=== PATIENT | male | born 1965 | race Hispanic/Latino ===

== ENCOUNTER → 2018-11-09 | Day surgery (SDC) | payer OTHER ==
[~2018-11-09] MED LIST: ABILIFY2 MG PO; ACETAMINOPHEN 1000 MG/100 ML 100 ML IV ONE; ACTOS45 MG PO; ALBUTEROL SULFATE HFA 8GM INHALATION AEROSOL INH ONE; BACITRACIN 50,000 UNIT VIAL ONE; BROMFED DM COU118 ML PO; BUPIVACAINE HCL 0.5% INJ 30 ML VIAL INJ ONE; BUSPIRONE HCL15 MG PO; CEFAZOLIN SOD 1 GM/NS 50ML 100 ML IV ONE; DEXAMETHASONE SOD PHOS INJ 4 MG/ML VIAL ONE; DEXTROSE 5% 250ML 250 ML IV ONE; DIGOXIN125 MCG PO; EPHEDRINE SULFATE INJ 50 MG/10 ML SYR ONE; FENTANYL CITRATE/PF 100MCG/2 ML INJ ONE; GLIMEPIRIDE2 MG PO; GLYCOPYRROLATE INJ 1MG/ 5 ML SYR ONE; LEXAPRO10 MG PO; LIDOCAINE HCL 2% LOCAL INJ 5 ML SDV VIAL INJ ONE; LOSARTAN POTASS50 MG PO; METFORMIN HCL500 MG PO; METOPROLOL TART50 MG PO; MIDAZOLAM HCL 2 MG/2 ML VIAL ONE; ONDANSETRON HCL INJ 2MG/ML 2ML 2 MG/ML VIAL ONE; PROPOFOL IV EMULSION 10 MG/ML 20 ML VIAL ONE; ROPIVACAINE 0.5% 5 MG/ML 30 ML SDV ONE; SEVOFLURANE INHAL SOLN 250 ML PEN BTL ONE; SIMVASTATIN40 MG PO; TRAZODONE HCL100 MG PO; XARELTO10 MG PO
--- OUTSIDE RECORDS SUMMARY | 2018-11-09 09:26 | XMS REPORT | Summary of Care ---
Author Author [facility] Organization [facility] Address Unknown Phone Unavailable Encounter MARY Acosta(MAL) [id number] Date(s): 03/31/17 - 03/31/[address] [address]- Encounter Diagnosis Chronic obstructive pulmonary disease with acute lower respiratory infection (Final) - 04/07/17 Hypertensive chronic kidney disease with stage 5 chronic kidney disease or end s tage renal disease (Final) - Unspecified atrial fibrillation (Final) - Unspecified atrial flutter (Final) - Insomnia due to medical condition (Final) - Bipolar disorder, current episode depressed, severe, with psychotic features (Final) - Hyperlipidemia, unspecified (Final) - Schizoaffective disorder, unspecified (Final) - Unspecified lack of coordination (Final) - Major depressive disorder, recurrent, unspecified (Final) - Type 2 diabetes mellitus without complications (Final) - Tachycardia, unspecified (Final) - Auditory hallucinations (Final) - Discharge Disposition: Home or Self Care Attending Physician: Jamaal Aguilar MD Referring Physician: Jesus Jacobs MD Vital Signs Most recent to 1 oldest [Reference Range]: Height 167.64 cm (03/31/17 11:22 AM) Weight 83.636 kg (03/31/17 11:22 AM) Body Mass Index 29.76 m2 (03/31/17 11:22 AM) Problem List Condition Effective Dates Status Health Status Informant Auditory Resolved hallucinations(Confi rmed) Depression(Confirmed Active ) Diabetes(Confirmed) Active Schizoaffective Active disorder(Confirmed) Visual Resolved hallucinations(Confi rmed) Allergies, Adverse Reactions, Alerts Substance Reaction Severity Status NKDA Active Medications No data available for this section Results No data available for this section Immunizations No data available for this section Procedures No data available for this section Social History Social History Type Response Substance Abuse Use: None.1 Alcohol Past2 Smoking Status Current every day smoker; Exposure to Tobacco Smoke None; Cigarette Smoking Last 365 Days Yes; Reg Smoking Cessation Counseling No3 entered on: 07/10/15 1denies 2last drank in his 30's 36-8 cigs/day Assessment and Plan No data available for this section
--- OUTSIDE RECORDS SUMMARY | 2018-11-09 09:26 | XMS REPORT | Continuity of Care Document ---
Author Author [facility] Address Unknown Phone Unavailable Care Team Providers Care Supervisor Lace Tearing Name Role Phone [employer] Unavailable Unavailable Problems Problem Status Onset Date Classification Date Reported Comments Source Chronic obstructive pulmonary disease with acute lower respiratory infection 04/08/2017 07/07/[address] [facility] CHRONIC BRONCHITIS Active 03/25/[address] [facility] Discharge Diagnosis: Paroxysmal atrial fibrillation 07/10/2015 07/13/2015 [facility] NEW ONSET A-FIB Active 07/10/2015 [facility] Hypertensive chronic kidney disease with stage 5 chronic kidney disease or end stage renal disease 07/07/[address] [facility] Unspecified atrial fibrillation 07/07/2017 [facility] Unspecified atrial flutter 07/07/[address] [facility] Insomnia due to medical condition 07/07/[address] [facility] Bipolar disorder, current episode depressed, severe, with psychotic features 07/07/2017 [facility] Hyperlipidemia, unspecified 07/07/2017 [facility] Schizoaffective disorder, unspecified 07/07/[address] [facility] Unspecified lack of coordination 07/07/[address] [facility] Major depressive disorder, recurrent, unspecified 07/07/[address] [facility] Type 2 diabetes mellitus without complications 07/07/2017 [facility] Tachycardia, unspecified 07/07/[address] [facility] Auditory hallucinations 07/07/[address] [facility] Auditory hallucinations (finding) Resolved Problem 07/07/2017 [facility] [place] Depressive disorder (disorder) Active Problem 07/07/2017 [facility] [place] Diabetes mellitus (disorder) Active Problem 07/07/2017 [facility] Schizoaffective disorder (disorder) Active Problem 07/07/2017 [facility] Visual hallucinations (finding) Resolved Problem 07/07/2017 [facility] Medications Medication Details Route Status Patient Instructions Ordering Provider Order Date Source Saline Flush 0.9% 10 mL, Route: IVP, Drug Form: INJ, Dosing Weight 72.727, kg, PRN, PRN Line Flush, Start date: 07/10/15 12:39:00 CDT, Duration: 1 day, Stop date: 07/11/15 12:38:00 CDTNotes: (Same as: BD Posiflush) Inactive 07/10/2015 [facility] Allergies, Adverse Reactions, Alerts No Known Medication Allergies Immunizations No Data Provided for This Section Results Order Name Results Value Reference Range Date Interpretation Comments Source CARDIAC ENZYMES BNP 34 <=100 pg/mL 07/10/2015 [facility] CARDIAC ENZYMES Troponin-I <0.02 0.00 - 0.40 07/10/2015 [facility] CHEM PANEL Magnesium Lvl 2.0 1.8 - 2.4 07/10/2015 [facility] CHEM PANEL AST 17 0 - 37 07/10/2015 [facility] CHEM PANEL Bili Total 0.4 0.2 - 1.3 07/10/2015 [facility] CHEM PANEL ALT 24 0 - 65 07/10/2015 [facility] PANEL Albumin Lvl 3.6 3.5 - 5.0 07/10/2015 [facility] PANEL eGFR 104 07/10/2015 Result Comment: The eGFR is calculated using the CKD-EPI formula. In most young, healthy individuals the eGFR will be >90 mL/min/1.73m2. The eGFR declines with age. An eGFR of 60-89 may be normal in some populations, particularly the elderly, for whom the CKD-EPI formula has not been extensively validated. Use of the eGFR is not recommended in the following populations:

Individuals with unstable creatinine concentrations, including patients and those with serious co-morbid conditions.

Patients with extremes in muscle mass or diet.

The data above are obtained from the National Kidney Disease Education Program (NKDEP) which additionally recommends that when the eGFR is used in patients with extremes of body mass index for purposes of drug dosing, the eGFR should be multiplied by the estimated BMI. [facility] CHEM PANEL Total Protein 6.3 6.4 - 8.4 07/10/2015 [facility] CHEM PANEL BUN 16 7 - 22 07/10/2015 [facility] CHEM PANEL Sodium Lvl 144 135 - 145 07/10/2015 [facility] CHEM PANEL Glucose Lvl 151 70 - 99 07/10/2015 [facility] CHEM PANEL Calcium Lvl 8.5 8.5 - 10.5 07/10/2015 [facility] CHEM PANEL Chloride Lvl 109 95 - 109 07/10/2015 [facility] CHEM PANEL Potassium Lvl 3.7 3.5 - 5.1 07/10/2015 [facility] CHEM PANEL CO2 28 24 - 32 07/10/2015 [facility] CHEM PANEL Creatinine Lvl 0.77 0.50 - 1.40 07/10/2015 [facility] CHEM PANEL Alk Phos 78 39 - 136 07/10/2015 [facility] CHEM PANEL B/C Ratio 21 6 - 25 07/10/2015 [facility] CHEM PANEL AGAP 10.7 10.0 - 20.0 07/10/2015 [facility] CHEM PANEL Globulin 2.7 2.0 - 4.0 07/10/2015 [facility] CHEM PANEL A/G Ratio 1.3 0.7 - 1.6 07/10/2015 [facility] HEMATOLOGY INR 1.05 0.85 - 1.17 07/10/2015 [facility] HEMATOLOGY PT 14.0 12.0 - 14.7 07/10/2015 [facility] HEMATOLOGY WBC 5.8 3.7 - 10.4 07/10/2015 [facility] HEMATOLOGY RBC 4.60 4.70 - 6.10 07/10/2015 [facility] HEMATOLOGY Hgb 13.9 14.0 - 18.0 07/10/2015 [facility] HEMATOLOGY RDW 13.1 11.5 - 14.5 07/10/2015 [facility] HEMATOLOGY MCH 30.3 27.0 - 31.0 07/10/2015 [facility] HEMATOLOGY MCHC 34.4 32.0 - 36.0 07/10/2015 [facility] HEMATOLOGY MCV 88.3 80.0 - 94.0 07/10/2015 [facility] HEMATOLOGY Hct 40.6 42.0 - 54.0 07/10/2015 [facility] HEMATOLOGY Platelet 180 133 - 450 07/10/2015 [facility] HEMATOLOGY MPV 8.5 7.4 - 10.4 07/10/2015 [facility] HEMATOLOGY Eosinophils 2.1 0.0 - 4.0 07/10/2015 [facility] HEMATOLOGY Lymphocytes 37.0 20.0 - 40.0 07/10/2015 [facility] HEMATOLOGY Segs 53.7 45.0 - 75.0 07/10/2015 [facility] HEMATOLOGY Basophils 0.5 0.0 - 1.0 07/10/2015 [facility] HEMATOLOGY Monocytes # 0.4 0.0 - 0.8 07/10/2015 [facility] HEMATOLOGY Eosinophils # 0.1 0.0 - 0.5 07/10/2015 [facility] HEMATOLOGY Monocytes 6.7 2.0 - 12.0 07/10/2015 [facility] HEMATOLOGY Segs-Bands # 3.1 1.5 - 8.1 07/10/2015 [facility] HEMATOLOGY Lymphocytes # 2.2 1.0 - 5.5 07/10/2015 [facility] IMMUNOLOGY CDC HIV 4th GEN Negative (07/10/15 1:14 PM) Negative 07/10/2015 [facility] IMMUNOLOGY [place]-Hep C Ab Negative *NA* (07/10/15 1:14 PM) Negative 07/10/2015 [facility] Pathology Reports No Data Provided for This Section Diagnostic Reports Report Value Date Source Chest 1view DX Clinical Indication: Chest pain; depression. Comparison: None FINDINGS: AP chest radiographs shows normal lung volumes without interstitial or airspace opacities, pleural effusions or pneumothorax. The heart size and pulmonary vasculature are normal. The trachea is midline. There are no clinically significant osseous abnormalities noted. IMPRESSION: No chest radiographic evidence of acute cardiopulmonary disease. SL: [id number] 07/10/2015 [facility] Consultation Notes No Data Provided for This Section Discharge Summaries No Data Provided for This Section History and Physicals No Data Provided for This Section Vital Signs Vital Sign Value Date Comments Source Height 167.64 cm 03/31/[address] [facility] BMI Calculated 29.76 03/31/[address] [facility] Weight 83.636 03/31/[address] [facility] Diastolic (mm Hg) 63 07/10/2015 [facility] Systolic (mm Hg) 126 07/10/2015 [facility] Respitory Rate 19 07/10/2015 [facility] Systolic (mm Hg) 134 07/10/2015 [facility] Diastolic (mm Hg) 63 07/10/2015 [facility] Respitory Rate 16 07/10/2015 [facility] Systolic (mm Hg) 105 07/10/2015 [facility] Diastolic (mm Hg) 58 07/10/2015 [facility] Respitory Rate 20 07/10/2015 [facility] BMI Calculated 27.52 07/10/2015 [facility] Temperature Oral (F) 98.1 F 07/10/2015 [facility] Height 162.56 cm 07/10/2015 [facility] Weight 72.727 07/10/2015 [facility] Heart Rate 72 07/10/2015 [facility] Encounters Location Location Details Encounter Type Encounter Number Reason For Visit Attending Provider ADM Date DC Date Status Source [facility] [id number] Jerson Anne 07/10/2015 07/10/2015 [facility] [id number] Jesus Jacobs 03/31/2017 04/01/[address] [facility] Procedures No Data Provided for This Section Assessment and Plan No Data Provided for This Section Plan of Care No Data Provided for This Section Social History Social History Date Source Social History TypeResponse Substance Abuse Use: None.1 Alcohol Past2 Smoking Status Current every day smoker; Exposure to Tobacco Smoke None; Cigarette Smoking Last 365 Days Yes; Reg Smoking Cessation Counseling No3 entered on: 07/10/15 [id number] drank in his 30's36-8 cigs/day 07/10/[address] [facility] Social History TypeResponse Substance Abuse Use: None.1 Alcohol Past2 Smoking Status Current every day smoker; Exposure to Tobacco Smoke None; Cigarette Smoking Last 365 Days Yes; Reg Smoking Cessation Counseling No3 [id number] drank in his 30's36-8 cigs/day 07/10/2015 [facility] Family History No Data Provided for This Section Advance Directives No Data Provided for This Section Functional Status No Data Provided for This Section
--- OUTSIDE RECORDS SUMMARY | 2018-11-09 09:26 | XMS REPORT | Summary of Care ---
Author Author [facility] Organization [facility] Address Unknown Phone Unavailable Encounter MARY Acosta(MAL) [id number] Date(s): 07/10/15 - 07/10/15 [facility] [address] [place] [address]- Discharge Diagnosis: Paroxysmal atrial fibrillation Discharge Disposition: Home Attending Physician: Jerson Anne MD Vital Signs 1 2 3 Most recent to oldest [Reference Range]: 162.56 cm (07/10/15 12:17 PM) Height 98.1 DegF (07/10/15 12:17 PM) Temperature Oral [96.4-99.1 DegF] 134/63 mmHg (07/10/15 3:30 PM) 105/58 mmHg (07/10/15 3:00 PM) Blood Pressure [90-140/60-90 mmHg] 126 mmHg (07/10/15 4:00 PM) Systolic Blood Pressure [90-140 mmHg] 63 mmHg (07/10/15 4:00 PM) Diastolic Blood Pressure [60-90 mmHg] 19 BRMIN (07/10/15 4:00 PM) 16 BRMIN (07/10/15 3:30 PM) 20 BRMIN (07/10/15 3:00 PM) Respiratory Rate [14-20 BRMIN] 72 bpm (07/10/15 12:17 PM) Peripheral Pulse Rate [60-100 bpm] 72.727 kg (07/10/15 12:17 PM) Weight 27.52 m2 (07/10/15 12:17 PM) Body Mass Index Problem List Condition Effective Dates Status Health Status Informant Auditory Resolved hallucinations(Confi rmed) Depression(Confirmed Active ) Diabetes(Confirmed) Active Schizoaffective Active disorder(Confirmed) Visual Resolved hallucinations(Confi rmed) Allergies, Adverse Reactions, Alerts Substance Reaction Severity Status NKDA Active Medications Saline Flush 0.9% 10 mL, Route: IVP, Drug Form: INJ, Dosing Weight 72.727, kg, PRN, PRN Line Flush , Start date: 07/10/15 12:39:00 CDT, Duration: 1 day, Stop date: 07/11/15 12:38: 00 CDT Notes: (Same as: BD Posiflush) Start Date: 07/10/15 Stop Date: 07/10/15 Status: Discontinued Results ELECTROLYTES Most recent to 1 oldest [Reference Range]: Sodium Lvl [135-145 144 mEq/L mEq/L] (07/10/15 1:14 PM) Potassium Lvl 3.7 mEq/L [3.5-5.1 mEq/L] (07/10/15 1:14 PM) Chloride Lvl [95-109 109 mEq/L mEq/L] (07/10/15 1:14 PM) CO2 [24-32 mEq/L] 28 mEq/L (07/10/15 1:14 PM) AGAP [10.0-20.0 10.7 mEq/L mEq/L] (07/10/15 1:14 PM) CHEM PANEL Most recent to 1 oldest [Reference Range]: Creatinine Lvl 0.77 mg/dL [0.50-1.40 mg/dL] (07/10/15 1:14 PM) eGFR 104 mL/min/1.73m2 1 *NA* (07/10/15 1:14 PM) BUN [7-22 mg/dL] 16 mg/dL (07/10/15 1:14 PM) B/C Ratio [6-25] 21 (07/10/15 1:14 PM) Glucose Lvl [70-99 151 mg/dL mg/dL] *HI* (07/10/15 1:14 PM) Total Protein 6.3 g/dL [6.4-8.4 g/dL] *LOW* (07/10/15 1:14 PM) Albumin Lvl [3.5-5.0 3.6 g/dL g/dL] (07/10/15 1:14 PM) Globulin [2.0-4.0 2.7 g/dL g/dL] (07/10/15 1:14 PM) A/G Ratio [0.7-1.6] 1.3 (07/10/15 1:14 PM) Calcium Lvl 8.5 mg/dL [8.5-10.5 mg/dL] (07/10/15 1:14 PM) Magnesium Lvl 2.0 mg/dL [1.8-2.4 mg/dL] (07/10/15 1:14 PM) ALT [0-65 unit/L] 24 unit/L (07/10/15 1:14 PM) AST [0-37 unit/L] 17 unit/L (07/10/15 1:14 PM) Alk Phos [39-136 78 unit/L unit/L] (07/10/15 1:14 PM) Bili Total [0.2-1.3 0.4 mg/dL mg/dL] (07/10/15 1:14 PM) 1Result Comment: The eGFR is calculated using the [...] from the National Kidney Disease Education Program ( NKDEP) which additionally recommends that when the eGFR is used in patients with extremes of body mass index for purposes of drug dosing, the eGFR should be mul tiplied by the estimated BMI. CARDIAC ENZYMES Most recent to 1 oldest [Reference Range]: Troponin-I <0.02 ng/mL [0.00-0.40 ng/mL] (07/10/15 1:14 PM) BNP [<=100 pg/mL] 34 pg/mL (07/10/15 1:14 PM) IMMUNOLOGY Most recent to 1 oldest [Reference Range]: CDC HIV 4th GEN Negative [Negative] (07/10/15 1:14 PM) [place]-Hep C Ab Negative [Negative] *NA* (07/10/15 1:14 PM) HEMATOLOGY Most recent to 1 oldest [Reference Range]: WBC [3.7-10.4 K/CMM] 5.8 K/CMM (07/10/15 1:14 PM) RBC [4.70-6.10 4.60 M/CMM M/CMM] *LOW* (07/10/15 1:14 PM) Hgb [14.0-18.0 g/dL] 13.9 g/dL *LOW* (07/10/15 1:14 PM) Hct [42.0-54.0 %] 40.6 % *LOW* (07/10/15 1:14 PM) MCV [80.0-94.0 fL] 88.3 fL (07/10/15 1:14 PM) MCH [27.0-31.0 pg] 30.3 pg (07/10/15 1:14 PM) MCHC [32.0-36.0 34.4 g/dL g/dL] (07/10/15 1:14 PM) RDW [11.5-14.5 %] 13.1 % (07/10/15 1:14 PM) Platelet [133-450 180 K/CMM K/CMM] (07/10/15 1:14 PM) MPV [7.4-10.4 fL] 8.5 fL (07/10/15 1:14 PM) Segs [45.0-75.0 %] 53.7 % (07/10/15 1:14 PM) Lymphocytes 37.0 % [20.0-40.0 %] (07/10/15 1:14 PM) Monocytes [2.0-12.0 6.7 % %] (07/10/15 1:14 PM) Eosinophils [0.0-4.0 2.1 % %] (07/10/15 1:14 PM) Basophils [0.0-1.0 0.5 % %] (07/10/15 1:14 PM) Segs-Bands # 3.1 K/CMM [1.5-8.1 K/CMM] (07/10/15 1:14 PM) Lymphocytes # 2.2 K/CMM [1.0-5.5 K/CMM] (07/10/15 1:14 PM) Monocytes # [0.0-0.8 0.4 K/CMM K/CMM] (07/10/15 1:14 PM) Eosinophils # 0.1 K/CMM [0.0-0.5 K/CMM] (07/10/15 1:14 PM) PT [12.0-14.7 14.0 seconds seconds] (07/10/15 1:14 PM) INR [0.85-1.17] 1.05 (07/10/15 1:14 PM) Immunizations No data available for this section Procedures No data available for this section Social History Social History Type Response Substance Abuse Use: None.1 Alcohol Past2 Smoking Status Current every day smoker; Exposure to Tobacco Smoke None; Cigarette Smoking Last 365 Days Yes; Reg Smoking Cessation Counseling No3 1denies 2last drank in his 30's 36-8 cigs/day Assessment and Plan No data available for this section
--- OUTSIDE RECORDS SUMMARY | 2018-11-09 09:26 | XMS REPORT ---
Author [facility] Address Unknown Phone Unavailable Care Team Providers Care Office Communication Professor Name Role Phone Unavailable Unavailable Payers Payer Name Policy Type Policy Number Effective Date Expiration Date Problems This patient has no known problems. Allergies, Adverse Reactions, Alerts Allergy Name Allergy Type Status Severity Reaction(s) Onset Date Inactive Date Treating Clinician Comments No Known Allergies DA Active U 2018-01-08 00:00:00 No Known Allergies DA Active U 2015-11-20 00:00:00 Medications This patient has no known medications. Results Test Description Test Time Test Comments Text Results Atomic Results Result Comments - XR CHEST 2 V 2018-11-08 16:03:00 FAX: Nigel Worthington [phone] [place]: B St: REG Name: NICO DIMAS [facility] : 1965 Age/S: 53/M [address] Unit #: [id number] Loc: [place] [address] Phys: Nigel Ann MD Acct: [id number] Dis Date: Status: REG CLI PHONE #: [phone] Exam Date: 11/08/2018 1136 FAX #: [phone] Reason: Z01.818 EXAMS: CPT CODE: [id number] XR CHEST 2 V 84948 REASON FOR EXAM: [id number] Exam Order Date: 11/08/2018 10:57 AM Ordering MLaure: Nigel Charles MD PROCEDURE: - XR CHEST 2 V COMPARISON: Frontal chest x-ray November 20, 2015. FINDINGS: The lungs are clear. There is no pleural effusion or pneumothorax. Pulmonary vascularity is within normal limits. Cardiomediastinal silhouette is normal in size for technique. The mediastinal contours are within normal limits. Mild degenerative changes of the spine. The visualized upper abdomen is within normal limits. IMPRESSION: No acute cardiopulmonary process. at 1603 Reported and signed by: Luisito Bennett MD CC: Nigel Ann MD Technologist: Denita Bernabe(Donte) Trnelianard Date/Time/By: 11/08/2018 (1977) : By: [email or web address] Orig Print D/T: S: 11/08/2018 (6992) PAGE 1 Signed Report
[2018-11-09 15:47] VITALS: BP 112/77
--- NOTE | 2018-11-10 16:44 | Operative Report ---
DATE OF PROCEDURE: 11/09/2018 SURGEON: Chintan Stevens MD PREOPERATIVE DIAGNOSIS: Right bimalleolar ankle fracture. POSTOPERATIVE DIAGNOSES: Right trimalleolar ankle fracture, right syndesmosis injury. OPERATIONS AND PROCEDURES PERFORMED: 1. The patient underwent an open reduction and internal fixation of the right fibular fracture and screw stabilization of the right syndesmosis injury. 2. Closed reduction and screw fixation of the right medial malleolus fracture. CHOIR LEADER: Unique Mills. ANESTHESIA: General endotracheal intubation anesthesia as well as a regional block. IV FLUIDS: As per the anesthesia record. BRIEF DESCRIPTION OF THE PATIENT'S OPERATIVE PROCEDURE: Mr. Grant was taken to the operating room and placed in the supine position on the operating table. Following induction of general anesthesia as well as endotracheal intubation, the patient's right lower extremity was examined under anesthesia. He was found to have swelling and ecchymosis about the right ankle joint. Fluoroscopic evaluation of ankle joint demonstrated a trimalleolar ankle fracture with displacement. The patient's lower extremity was prepped and draped in standard surgical fashion. The case was begun by creating incision over the fibular fracture. This incision was carried through the skin only. Blunt dissection was used to deepen the incision to the level of the fibular injury. A displaced fibular fracture was encountered. The ankle mortise was reduced and the fibular fracture was realigned and held in place with a fracture reduction clamp. A plate was chosen and contoured to the lateral aspect of the fibula. This plate was affixed to the fibula with combinations of cortical and locking screws. Evaluation of the patient's ankle joint at this time demonstrated continued widening of the syndesmosis. A tenaculum clamp was used to provide reduction of the syndesmosis and a single screw was advanced from lateral to medial across the syndesmosis reducing the syndesmosis while the foot was in neutral dorsiflexion. Repeat fluoroscopic evaluation of the ankle joint demonstrated an intact ankle mortise as well as appropriate overlap of the distal tibia and fibula. There was also anatomic alignment of the medial malleolus fracture. Two pins from the 4-0 cannulated screw system were advanced from distal proximal capturing the medial malleolus fracture in its reduced position. Two screws were advanced from distal to proximal over the pins providing compression across the patient's fracture site. The position of the screws as well as reduction of the medial malleolus was then assessed using fluoroscopy. All wounds were copiously irrigated. The wounds were closed in a multilayer fashion. Sterile dressings were applied and the patient was provided a well-padded three-sided splint. The patient was then awakened and taken to the postanesthesia care in stable condition. Unique Mills acted as a facilities maintenance assistant for this case and was necessary for the prepping and draping of the patient as well as retraction of soft tissues in the application of the splint to allow this case to be successful. MD TY Antunez/GUEVARA /[id number]
== END | disposition home or self-care (01) ==
LOC: OR 09:21
PROVIDERS: ATTEND Specialist
DX: S82.61XA Displaced fracture of lateral malleolus of right fibula, initial encounter for closed fracture (principal); S82.51XA Displaced fracture of medial malleolus of right tibia, initial encounter for closed fracture; E11.9 Type 2 diabetes mellitus without complications; I10 Essential (primary) hypertension; I48.91 Unspecified atrial fibrillation; E78.5 Hyperlipidemia, unspecified; F41.9 Anxiety disorder, unspecified; F32.9 Major depressive disorder, single episode, unspecified; F17.210 Nicotine dependence, cigarettes, uncomplicated; Z79.84 Long term (current) use of oral hypoglycemic drugs; Z79.01 Long term (current) use of anticoagulants; S82.851A Displaced trimalleolar fracture of right lower leg, initial encounter for closed fracture
CPT/HCPCS: 27823; 36415; 82948; C1713 ×6; J0131; J0690; J1100; J2001; J2250; J2405; J2704; J2795; J3010; J3490; J7070

== ENCOUNTER 2018-11-11 03:18 | Emergency (ER) | payer OTHER ==
[~2018-11-11] VITALS: Ht 162.6 cm; Wt 108.9 kg
[~2018-11-11 03:18] MED LIST changes: -ACETAMINOPHEN 1000 MG/100 ML 100 ML IV ONE; -ALBUTEROL SULFATE HFA 8GM INHALATION AEROSOL INH ONE; -BACITRACIN 50,000 UNIT VIAL ONE; -BUPIVACAINE HCL 0.5% INJ 30 ML VIAL INJ ONE; -CEFAZOLIN SOD 1 GM/NS 50ML 100 ML IV ONE; -DEXAMETHASONE SOD PHOS INJ 4 MG/ML VIAL ONE; -DEXTROSE 5% 250ML 250 ML IV ONE; -EPHEDRINE SULFATE INJ 50 MG/10 ML SYR ONE; -FENTANYL CITRATE/PF 100MCG/2 ML INJ ONE; -GLYCOPYRROLATE INJ 1MG/ 5 ML SYR ONE; -LIDOCAINE HCL 2% LOCAL INJ 5 ML SDV VIAL INJ ONE; -MIDAZOLAM HCL 2 MG/2 ML VIAL ONE; -ONDANSETRON HCL INJ 2MG/ML 2ML 2 MG/ML VIAL ONE; -PROPOFOL IV EMULSION 10 MG/ML 20 ML VIAL ONE; -ROPIVACAINE 0.5% 5 MG/ML 30 ML SDV ONE; -SEVOFLURANE INHAL SOLN 250 ML PEN BTL ONE
--- OUTSIDE RECORDS SUMMARY | 2018-11-11 03:21 | XMS REPORT | Continuity of Care Document ---
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 Phone [employer] Unavailable Unavailable Problems Problem Status Onset Date Classification Date Reported Comments Source Chronic obstructive pulmonary disease with acute lower respiratory infection 04/08/2017 07/07/2017 [facility] CHRONIC BRONCHITIS Active 03/25/2017 [facility] Discharge Diagnosis: Paroxysmal atrial fibrillation 07/10/2015 07/13/2015 [facility] NEW ONSET A-FIB Active 07/10/2015 [facility] Hypertensive chronic kidney disease with stage 5 chronic kidney disease or end stage renal disease 07/07/2017 [facility] Unspecified atrial fibrillation 07/07/2017 [place] Unspecified atrial flutter 07/07/2017 [facility] Insomnia due to medical condition 07/07/2017 [facility] Bipolar disorder, current episode depressed, severe, with psychotic features 07/07/2017 [place] Hyperlipidemia, unspecified 07/07/2017 [place] Schizoaffective disorder, unspecified 07/07/2017 [facility] Unspecified lack of coordination 07/07/2017 [facility] Major depressive disorder, recurrent, unspecified 07/07/2017 [facility] Type 2 diabetes mellitus without complications 07/07/2017 [place] Tachycardia, unspecified 07/07/2017 [facility] Auditory hallucinations 07/07/2017 [facility] Auditory hallucinations (finding) Resolved Problem 07/07/2017 [facility] [place] Depressive disorder (disorder) Active Problem 07/07/2017 [facility] [place] Diabetes mellitus (disorder) Active Problem 07/07/2017 [facility] [place] Schizoaffective disorder (disorder) Active Problem 07/07/2017 [facility] Visual hallucinations (finding) Resolved Problem 07/07/2017 [facility] Medications Medication Details Route Status Patient Instructions Ordering Provider Order Date Source Saline Flush 0.9% 10 mL, Route: IVP, Drug Form: INJ, Dosing Weight 72.727, kg, PRN, PRN Line Flush, Start date: 07/10/15 12:39:00 CDT, Duration: 1 day, Stop date: 07/11/15 12:38:00 CDTNotes: (Same as: BD Posiflush) Inactive 07/10/2015 [facility] Allergies, Adverse Reactions, Alerts No Known Medication Allergies Immunizations No Data Provided for This Section Results Order Name Results Value Reference Range Date Interpretation Comments Source CARDIAC ENZYMES BNP 34 <=100 pg/mL 07/10/2015 [facility] CARDIAC ENZYMES Troponin-I <0.02 0.00 - 0.40 07/10/2015 [facility] CHEM PANEL Magnesium Lvl 2.0 1.8 - 2.4 07/10/2015 [facility] CHEM PANEL AST 17 0 - 37 07/10/2015 [facility] CHEM PANEL Bili Total 0.4 0.2 - 1.3 07/10/2015 [facility] CHEM PANEL ALT 24 0 - 65 07/10/2015 [facility] PANEL Albumin Lvl 3.6 3.5 - 5.0 07/10/2015 [facility] PANEL eGFR 104 07/10/2015 Result Comment: [...] should be multiplied by the estimated BMI. [facility] CHEM PANEL Total Protein 6.3 6.4 - 8.4 07/10/2015 [facility] CHEM PANEL BUN 16 7 - 22 07/10/2015 [facility] CHEM PANEL Sodium Lvl 144 135 - 145 07/10/2015 [facility] CHEM PANEL Glucose Lvl 151 70 - 99 07/10/2015 [facility] CHEM PANEL Calcium Lvl 8.5 8.5 - 10.5 07/10/2015 [facility]M PANEL Chloride Lvl 109 95 - 109 07/10/2015 [facility] CHEM PANEL Potassium Lvl 3.7 3.5 - 5.1 07/10/2015 [facility] CHEM PANEL CO2 28 24 - 32 07/10/2015 [facility] CHEM PANEL Creatinine Lvl 0.77 0.50 - 1.40 07/10/2015 [facility] CHEM PANEL Alk Phos 78 39 - 136 07/10/2015 [facility] CHEM PANEL B/C Ratio 21 6 - 25 07/10/2015 [facility] CHEM PANEL AGAP 10.7 10.0 - 20.0 07/10/2015 [facility] CHEM PANEL Globulin 2.7 2.0 - 4.0 07/10/2015 [facility] CHEM PANEL A/G Ratio 1.3 0.7 - 1.6 07/10/2015 [facility] HEMATOLOGY INR 1.05 0.85 - 1.17 07/10/2015 [facility] HEMATOLOGY PT 14.0 12.0 - 14.7 07/10/2015 [facility] HEMATOLOGY WBC 5.8 3.7 - 10.4 07/10/2015 [facility] HEMATOLOGY RBC 4.60 4.70 - 6.10 07/10/2015 [facility] HEMATOLOGY Hgb 13.9 14.0 - 18.0 07/10/2015 [facility] HEMATOLOGY RDW 13.1 11.5 - 14.5 07/10/2015 [facility] HEMATOLOGY MCH 30.3 27.0 - 31.0 07/10/2015 [facility] HEMATOLOGY MCHC 34.4 32.0 - 36.0 07/10/2015 [facility] HEMATOLOGY MCV 88.3 80.0 - 94.0 07/10/2015 [facility] HEMATOLOGY Hct 40.6 42.0 - 54.0 07/10/2015 [facility] HEMATOLOGY Platelet 180 133 - 450 07/10/2015 [facility] HEMATOLOGY MPV 8.5 7.4 - 10.4 07/10/2015 [facility] HEMATOLOGY Eosinophils 2.1 0.0 - 4.0 07/10/2015 [facility] HEMATOLOGY Lymphocytes 37.0 20.0 - 40.0 07/10/2015 [facility] HEMATOLOGY Segs 53.7 45.0 - 75.0 07/10/2015 [facility] HEMATOLOGY Basophils 0.5 0.0 - 1.0 07/10/2015 [facility] HEMATOLOGY Monocytes # 0.4 0.0 - 0.8 07/10/2015 [facility] HEMATOLOGY Eosinophils # 0.1 0.0 - 0.5 07/10/2015 [facility] HEMATOLOGY Monocytes 6.7 2.0 - 12.0 07/10/2015 [facility] HEMATOLOGY Segs-Bands # 3.1 1.5 - 8.1 07/10/2015 [facility] HEMATOLOGY Lymphocytes # 2.2 1.0 - 5.5 07/10/2015 [facility] IMMUNOLOGY CDC HIV 4th GEN Negative (07/10/15 1:14 PM) Negative 07/10/2015 [facility] IMMUNOLOGY [place]-Hep C Ab Negative *NA* (07/10/15 1:14 PM) Negative 07/10/2015 [facility] Pathology Reports No Data Provided for [...] radiographic evidence of acute cardiopulmonary disease. SL: [id number] 07/10/2015 [facility] Consultation Notes No Data Provided for This Section Discharge Summaries No Data Provided for This Section History and Physicals No Data Provided for This Section Vital Signs Vital Sign Value Date Comments Source Height 167.64 cm 03/31/2017 [facility] BMI Calculated 29.76 03/31/2017 [facility] Weight 83.636 03/31/2017 [facility] Diastolic (mm Hg) 63 07/10/2015 [facility] Systolic (mm Hg) 126 07/10/2015 [facility] Respitory Rate 19 07/10/2015 [facility] Systolic (mm Hg) 134 07/10/2015 [facility] Diastolic (mm Hg) 63 07/10/2015 [facility] Respitory Rate 16 07/10/2015 [facility] Systolic (mm Hg) 105 07/10/2015 [facility] Diastolic (mm Hg) 58 07/10/2015 [facility] Respitory Rate 20 07/10/2015 [facility] BMI Calculated 27.52 07/10/2015 [facility] Temperature Oral (F) 98.1 F 07/10/2015 [facility] Height 162.56 cm 07/10/2015 [facility] Weight 72.727 07/10/2015 [facility] Heart Rate 72 07/10/2015 [facility] Encounters Location Location Details Encounter Type Encounter Number Reason For Visit Attending Provider ADM Date DC Date Status Source [facility] [id number] Jerson Anne 07/10/2015 07/10/2015 [facility] [id number] Jesus Jacobs 03/31/2017 04/01/2017 [facility] Procedures No Data Provided for This Section [...] Smoking Cessation Counseling No3 entered on: 07/10/15 [id number] drank in his 30's36-8 cigs/day 07/10/2015 [facility] Social History TypeResponse Substance Abuse Use: None.1 Alcohol Past2 Smoking Status Current every day smoker; Exposure to Tobacco Smoke None; Cigarette Smoking Last 365 Days Yes; Reg Smoking Cessation Counseling No3 [id number] drank in his 30's36-8 cigs/day 07/10/2015 [facility] Family History No Data Provided for This Section Advance Directives No Data Provided for This Section Functional Status No Data Provided for This Section
[2018-11-11] MEDS ORDERED: HYDROCODONE/APAP 5MG-325MG TAB PO ONE (04:00)
--- NOTE | 2018-11-11 05:29 | Diagnostic Imaging Report ---
Exam: Right ankle 3 views History: Postsurgical ankle pain Comparison: None. Findings: Overlying cast material limits osseous detail. Status post operative fixation of medial malleolar and distal fibular diaphyseal fractures with orthopedic screws and a compression plate and screw construct, respectively. Fracture alignment is near-anatomic and there is no evidence of hardware loosening or failure. Expected overlying soft tissue swelling. Impression: Postsurgical changes of operative fixation of medial malleolus and distal fibular diaphyseal fractures with intact surgical hardware and near anatomic alignment of fracture fragments. Signed by: Dr. Nico Luna M.D. on 11/11/2018 5:26 AM
== END 2018-11-11 07:04 | disposition home or self-care (01) ==
LOC: ER 03:18
DX: M25.571 Pain in right ankle and joints of right foot (principal); Z98.890 Other specified postprocedural states
CPT/HCPCS: 93971; 99283

== ENCOUNTER 2018-12-27 13:34 | Outpatient (RCR) | payer OTHER ==
[2018-12-27] MEDS ORDERED: MUPIROCIN 2% OINT 22 GM TUBE ONE (17:17)
[2018-12-27] MEDS ORDERED: LIDOCAINE/PRILOCAINE 2.5-2.5% KIT ONE (17:17)
== END 2019-01-11 ==
LOC: WCC 13:34
PROVIDERS: ATTEND Family Medicine
DX: T81.32XA Disruption of internal operation (surgical) wound, not elsewhere classified, initial encounter (principal); Y83.8 Other surgical procedures as the cause of abnormal reaction of the patient, or of later complication, without mention of misadventure at the time of the procedure; E11.65 Type 2 diabetes mellitus with hyperglycemia; I10 Essential (primary) hypertension; I48.91 Unspecified atrial fibrillation; F33.0 Major depressive disorder, recurrent, mild; F42.4 Excoriation (skin-picking) disorder
CPT/HCPCS: 36415; 82948; 87071; 87075; 87186; 87205

== ENCOUNTER → 2019-01-11 | Day surgery (SDC) | payer OTHER ==
[~2019-01-11] MED LIST changes: +BACITRACIN 50,000 UNIT VIAL ONE; +BUPIVACAINE HCL 0.5% INJ 30 ML VIAL INJ ONE; +CEFAZOLIN SOD 1 GM/NS 50ML 100 ML IV ONE; +EPHEDRINE SULFATE INJ 50 MG/10 ML SYR ONE; +FENTANYL CITRATE/PF 100MCG/2 ML INJ ONE; +LIDOCAINE HCL 2% LOCAL INJ 5 ML SDV VIAL INJ ONE; +MIDAZOLAM HCL 2 MG/2 ML VIAL ONE; +ONDANSETRON HCL INJ 2MG/ML 2ML 2 MG/ML VIAL ONE; +PROPOFOL IV EMULSION 10 MG/ML 20 ML VIAL ONE; +SEVOFLURANE INHAL SOLN 250 ML PEN BTL ONE
[2019-01-11] MEDS: HYDROMORPHONE 1MG/1ML INJ ONE ×2 (11:39→12:08)
--- NOTE | 2019-01-11 11:41 | NUR ---
WOUND CARE NOTE: PATIENT RECEIVED IN OR POST HARDWARE REMOVAL/REVISION & GRAFT APPLICATION. WOUND VAC PLACED TO RIGHT LATERAL AND MEDIAL ANKLE OVER SUTURE LINE ALONG WITH DISTALLY PARTIALLY OPEN WOUND APPROXIMATELY [id number]. TO ASSIST IN GRAFT TAKE TO SITES & REMOVE EXCESS FLUID TO PREVENT DEHISCENCE TO INCISION LINES. NO WILMAR BLEEDING NOTED. SEALED AT 125MMHG CONTINUOUS THERAPY PER PHYSICIAN ORDERS. RLE WRAPPED WITH WEBRIL AND LIGHT KAZ TO CONTROL EDEMA, DH WALKER BOOT APPLIED PER PHYSICIAN ORDERS. FAMILY (SISTER EZEQUIEL) EDUCATED ON MAINTENANCE OF WOUND VAC (NPWT) & GIVEN CONTACT FOR [facility] AND [facility] FOR TROUBLE SHOOTING IF NEEDED. APPT GIVEN FOR 01/15/19 @3565 FOR OP WOUND[facility]ARE CLINIC WITH DR BARRERA FOLLOW UP. FAMILY HAD QUESTIONS ABOUT PAIN MEDICATION, INSTRUCTED HER TO SPEAK WITH BEDSIDE NURSE IN PACU AND PHYSICIAN ABOUT THIS MATTER. FAMILY VERBALIZED UNDERSTANDING OF CARE PLAN BY PHYSICIAN. AGREES TO BRING VAC DRESSING/CANNISTER WITH EACH VISIT. Addendum: 01/11/19 at 1150 by Ghazal Veronica LVN Amended: Links added.
[2019-01-11 13:25] VITALS: BP 147/98
--- NOTE | 2019-01-12 13:29 | Operative Report ---
DATE OF PROCEDURE: 01/11/2019 SURGEON: Murali Hameed MD PREOPERATIVE DIAGNOSIS: Open wound, right leg, status post open reduction and internal fixation of right tibia and right fibula. POSTOPERATIVE DIAGNOSIS: Open wound, right leg, status post open reduction and internal fixation of right tibia and right fibula. PROCEDURE: 1. Intermediate closure. 2. Application of acellular dermis to legs, 25 sq cm. ANESTHESIA: General. HISTORY: The patient is a 53-year-old male, who underwent ORIF of a complicated tibia fibula fracture by the Orthopedic Service. Postoperatively, the lateral wound has nerve root dehiscence and the hardware has become exposed. The Plastic Surgery Service was called in to assist with the wound after the hardware was to be removed. Risks, benefits, alternatives of treatment were discussed with the patient and the family. They are prepared to undergo the procedure as outlined. PROCEDURE IN DETAIL: The patient was marked preoperatively in the holding area. He was brought to the OR by the Orthopedic Service. At the completion of the removal of the medial and the lateral hardware, the plastic surgical team was called in. The patient was under general anesthesia and he was prepped and draped in a supine position and a time-out for the plastic surgical portion of the procedure was performed. Inspection of the lateral wound revealed a 10 cm long wound approximately 3 cm wide with exposure of the fibula. The hardware had been removed and the hardware site was inspected. Medially, the wound measured approximately 3-4 cm in its greatest diameter. There was exposed tibia in the depths of the wound. The thinking was that the use of acellular dermis to cover the bone and into loosely restore the flaps over the acellular dermis would provide the best healing potential and prevent exposure of the underlying osseous structures. At this point, PriMatrix was selected and the implant lot number and serial number located in the implant logs. The material was reconstituted in bacteriostatic saline. At this point, PriMatrix was cut so that it fit the dimensions of both the medial and the lateral wounds as mentioned, the amount use was approximately 25 sq cm. The PriMatrix was placed into the lateral wound first directly over the fibula and it was secured to the deep underlying tissues with 4-0 chromic sutures in an interrupted fashion. At this point, undermining of the flaps laterally was performed in the deep subcutaneous plane using electrocautery. The skin was then closed from the edges of the wound superiorly and inferiorly, first using 4-0 nylon suture in an interrupted horizontal mattress fashion. Approximately 75% of the wound was closed without undue tension; however, the central aspect of the wound could not be closed and the intention was to place a VAC dressing over this area. Medially, the PriMatrix was sutured directly over the tibia and secured in place using a 4-0 chromic sutures once again in an interrupted fashion. The skin was approximated with 4-0 nylon in interrupted horizontal mattress fashion and complete closure of this wound was achieved without significant tension. At this point, Adaptic was placed onto the incisions. Antibiotic ointment was not used because a VAC dressing was then placed over the medial and lateral wounds and secured to the VAC with 125 mm of intermittent pressure. The seal was noted to be satisfactory after placement of the VAC dressing and the patient was then returned to recovery room in satisfactory condition and discharged with a postoperative instruction sheet as well as a followup appointment. MD RAFA Hawley/GUEVARA /[id number]
--- NOTE | 2019-01-18 14:51 | Operative Report ---
DATE OF PROCEDURE: 01/11/2019 SURGEON: Chintan Stevens MD PREOPERATIVE DIAGNOSIS: Infected right ankle hardware. POSTOPERATIVE DIAGNOSIS: Infected right ankle hardware. OPERATIONS AND PROCEDURES PERFORMED: The patient underwent removal of the infected right ankle hardware, debridement of the right ankle lateral wound and irrigation, and debridement of the medial and lateral aspects of the ankle. MANAGER OPERATIONS AND PROCUREMENT: TERE Padron. ANESTHESIA: General endotracheal intubation anesthesia. IV FLUIDS: Per anesthesia record. BRIEF DESCRIPTION OF THE PATIENT'S OPERATIVE PROCEDURE: Mr. Temple was taken to the operating room and placed in the supine position on the operating table. Following induction of general anesthesia as well as endotracheal intubation, the patient's right lower extremity was examined under anesthesia. He was found to have surgical incisions overlying his ankle consistent with a previous open reduction and internal fixation of a bimalleolar ankle fracture with syndesmosis injury. The patient's lateral wound was found to have a base of full-thickness dehiscence. The patient's medial ankle wound demonstrated healed incisions. The patient's lower extremity was prepped and draped in standard surgical fashion. The case was begun by reopening the patient's lateral ankle incision. In the distal aspect of that incision, there was an area of full-thickness soft tissue loss. There was a thin layer of granulation and scar tissue overlying the exposed plate. This area was debrided with both a blunt and sharp fashion. The plate was fully exposed laterally and the plate was then removed. There was no evidence of osteomyelitis at the time of the surgery. There was no abscess formation at the time of surgery. Attention was then turned to the patient's medial hardware. A curvilinear incision was created over the medial aspect of the ankle joint. This incision was carried through the skin only. Blunt dissection was used to deepen the incision to the level of the medial ankle hardware. This hardware was also removed under direct vision. There was no evidence of osteomyelitis or abscess over the medial ankle. Both wounds were thoroughly debrided of devitalized tissue using combinations of both sharp and blunt dissection. The wounds were then copiously irrigated with bacitracin-laden normal saline in a pulse lavage fashion. At this juncture, the case was turned over to Plastic Surgery to provide local soft tissue coverage. [employer] acted as first mate for this case and was necessary for both prepping and draping of the patient as well as retraction of soft tissues that allowed this case to be successful. MD TY Antunez/GUEVARA /[id number]
== END | disposition home or self-care (01) ==
LOC: OR 07:41
PROVIDERS: ATTEND Specialist
DX: T84.7XXA Infection and inflammatory reaction due to other internal orthopedic prosthetic devices, implants and grafts, initial encounter (principal); Y83.8 Other surgical procedures as the cause of abnormal reaction of the patient, or of later complication, without mention of misadventure at the time of the procedure; Z79.84 Long term (current) use of oral hypoglycemic drugs; Z79.02 Long term (current) use of antithrombotics/antiplatelets; F41.9 Anxiety disorder, unspecified; F32.9 Major depressive disorder, single episode, unspecified; R05 Cough; I10 Essential (primary) hypertension; E78.5 Hyperlipidemia, unspecified; I48.91 Unspecified atrial fibrillation; E11.9 Type 2 diabetes mellitus without complications; F17.210 Nicotine dependence, cigarettes, uncomplicated; Z68.30 Body mass index [BMI] 30.0-30.9, adult; Z87.81 Personal history of (healed) traumatic fracture
CPT/HCPCS: 17999; 20680; Q4110; 36415; 76000; 82948; 97605; J0690; J1170; J2001; J2250; J2405; J3010

== ENCOUNTER 2019-02-06 15:08 | Outpatient (RCR) | payer OTHER ==
[~2019-02-06 15:08] MED LIST changes: -BACITRACIN 50,000 UNIT VIAL ONE; -BUPIVACAINE HCL 0.5% INJ 30 ML VIAL INJ ONE; -CEFAZOLIN SOD 1 GM/NS 50ML 100 ML IV ONE; -EPHEDRINE SULFATE INJ 50 MG/10 ML SYR ONE; -FENTANYL CITRATE/PF 100MCG/2 ML INJ ONE; -LIDOCAINE HCL 2% LOCAL INJ 5 ML SDV VIAL INJ ONE; -MIDAZOLAM HCL 2 MG/2 ML VIAL ONE; +MINERAL OIL/PETROLAT/GLYCERI 6OZ BTL ONE; +MUPIROCIN 2% OINT 22 GM TUBE ONE; -PROPOFOL IV EMULSION 10 MG/ML 20 ML VIAL ONE; -SEVOFLURANE INHAL SOLN 250 ML PEN BTL ONE
== END 2019-02-10 ==
LOC: WCC 15:08
PROVIDERS: ATTEND Family Medicine
DX: T81.32XA Disruption of internal operation (surgical) wound, not elsewhere classified, initial encounter (principal); T84.498A Other mechanical complication of other internal orthopedic devices, implants and grafts, initial encounter; Y83.8 Other surgical procedures as the cause of abnormal reaction of the patient, or of later complication, without mention of misadventure at the time of the procedure; E11.65 Type 2 diabetes mellitus with hyperglycemia; I10 Essential (primary) hypertension; F42.4 Excoriation (skin-picking) disorder; I48.91 Unspecified atrial fibrillation; F33.0 Major depressive disorder, recurrent, mild
CPT/HCPCS: 97605 ×3; 97607; 99213; J2405

== ENCOUNTER → 2019-02-21 | Outpatient (CLI) | payer OTHER ==
[~2019-02-21] MED LIST changes: -MINERAL OIL/PETROLAT/GLYCERI 6OZ BTL ONE; -MUPIROCIN 2% OINT 22 GM TUBE ONE; -ONDANSETRON HCL INJ 2MG/ML 2ML 2 MG/ML VIAL ONE
== END ==
LOC: WCC 15:34
PROVIDERS: ATTEND Family Medicine
DX: T84.498A Other mechanical complication of other internal orthopedic devices, implants and grafts, initial encounter (principal); Y83.8 Other surgical procedures as the cause of abnormal reaction of the patient, or of later complication, without mention of misadventure at the time of the procedure; E11.65 Type 2 diabetes mellitus with hyperglycemia; F42.4 Excoriation (skin-picking) disorder; I10 Essential (primary) hypertension; I48.91 Unspecified atrial fibrillation; F33.0 Major depressive disorder, recurrent, mild

== ENCOUNTER 2019-04-17 11:51 | Outpatient (RCR) | payer OTHER | END 2019-05-12 | LOC: WCC 11:51 | PROVIDERS: ATTEND Family Medicine | DX: T84.498A Other mechanical complication of other internal orthopedic devices, implants and grafts, initial encounter (principal); E11.65 Type 2 diabetes mellitus with hyperglycemia; Y83.8 Other surgical procedures as the cause of abnormal reaction of the patient, or of later complication, without mention of misadventure at the time of the procedure; I10 Essential (primary) hypertension; I48.91 Unspecified atrial fibrillation; F33.0 Major depressive disorder, recurrent, mild; F42.4 Excoriation (skin-picking) disorder ==

== ENCOUNTER 2019-05-16 12:12 | Outpatient (RCR) | payer OTHER | END 2019-06-12 | LOC: WCC 12:12 | PROVIDERS: ATTEND Family Medicine | DX: T84.498A Other mechanical complication of other internal orthopedic devices, implants and grafts, initial encounter (principal); Y83.8 Other surgical procedures as the cause of abnormal reaction of the patient, or of later complication, without mention of misadventure at the time of the procedure; E11.65 Type 2 diabetes mellitus with hyperglycemia; F42.4 Excoriation (skin-picking) disorder; I10 Essential (primary) hypertension; I48.91 Unspecified atrial fibrillation; F33.0 Major depressive disorder, recurrent, mild ==

== ENCOUNTER 2020-03-01 21:07 | Inpatient (IN) | payer OTHER ==
[~2020-03-01] VITALS: Ht 162.6 cm; Wt 83.0 kg
[2020-03-01] MEDS ORDERED: ONDANSETRON HCL INJ 2MG/ML 2ML 2 MG/ML VIAL IV STA (21:12)
[2020-03-01] MEDS ORDERED: MORPHINE SULFATE INJ 4 MG/ML INJ 1ML IV STA (21:16)
[2020-03-01 21:31] LABS: BASOPHILS % 0.1 % (0.0-1.0); EOSINOPHILS # (AUTO) 0.1 (0.0-0.4); EOSINOPHILS % 1.5 % (0.0-6.0); HEMOGLOBIN 17.4 g/dL (14.0-18.0); LYMPHOCYTES # (AUTO) 1.7 (1.0-3.2); LYMPHOCYTES % 18.1 % (18.0-39.1); MEAN CORPUSCULAR HEMOGLOBIN 29.8 pg (28-32); MEAN CORPUSCULAR HGB CONC 33.5 g/dL (31-35); MONOCYTES # (AUTO) 0.5 (0.2-0.8); MONOCYTES % 5.6 % (4.4-11.3); NEUTROPHILS % 74.3 % (38.7-80.0); PLATELET COUNT 215 x10e3/uL (140-360); RED BLOOD COUNT 5.84 x10e6/uL (4.3-5.7); RED CELL DISTRIBUTION WIDTH 12.6 % (11.7-14.4)
[2020-03-01 21:51] LABS: ALANINE AMINOTRANSFERASE 23 IU/L (0-55); ALBUMIN 4.8 g/dL (3.5-5.0); ALBUMIN/GLOBULIN RATIO 1.3 (0.8-2.0); ALKALINE PHOSPHATASE 100 IU/L (40-150); ANION GAP 17.2 mmol/L (8-16); BLOOD UREA NITROGEN 7 mg/dL (7-26); BUN/CREATININE RATIO 6 (6-25); CALCIUM 9.4 mg/dL (8.4-10.2); CARBON DIOXIDE 25 mmol/L (22-29); CHLORIDE 94 mmol/L (98-107); CREATINE KINASE 393 IU/L (30-200); CREATININE, SERUM 1.14 mg/dL (0.72-1.25); EST GLOMERULAR FILTRATION RATE > 60 ML/MIN (60-); GLUCOSE 210 mg/dL (74-118); POTASSIUM 4.2 mmol/L (3.5-5.1); SODIUM 132 mmol/L (136-145)
[2020-03-01] MEDS ORDERED: IOPAMIDOL 370 MG/ML 200 ML INFUS..BTL INJ ONE (22:21)
[2020-03-01] MEDS ORDERED: SODIUM CHLORIDE 0.9% 50ML 50 ML ONE (22:21)
[2020-03-01 22:27] LABS: AMYLASE 501 U/L (25-125)
[2020-03-01 22:54] LABS: CLARITY,URINE CLEAR (CLEAR); COLOR,URINE YELLOW (YELLOW); LEUKOCYTE ESTERASE ,URINE NEGATIVE (NEGATIVE); NITRITE,URINE NEGATIVE (NEGATIVE); PROTEIN,URINE DIPSTICK NEGATIVE (NEGATIVE)
[2020-03-01 22:55] LABS: KETONES,URINE NEGATIVE (NEGATIVE); URINE UROBILINOGEN 0.2 mg/dL (0.2 - 1)
[2020-03-01 22:56] LABS: BACTERIA,URINE FEW /HPF; EPITHELIAL CELLS,URINE FEW /LPF; WBC,URINE (MAN) 0-5 /HPF (0-5)
[2020-03-01 23:12] LABS: LIPASE > 1200 U/L (8-78)
[2020-03-01] MEDS ORDERED: SODIUM CHLORIDE 0.9% 1000ML 1,000 ML IV ONE (23:30)
[2020-03-02] VITALS (10 sets, daily range): BP systolic 126–138; BP diastolic 69–84
[2020-03-02] MEDS ORDERED: MORPHINE SULFATE 2 MG/ML SYR 1ML IV PRN (01:15)
[2020-03-02] MEDS ORDERED: ONDANSETRON HCL INJ 2MG/ML 2ML 2 MG/ML VIAL IV PRN (01:15)
[2020-03-02] MEDS ORDERED: DEXTROSE 50% SYRINGE 50 ML IV PRN (01:15)
[2020-03-02] MEDS: SODIUM CHLORIDE 0.9% 1000ML 1,000 ML IV SCH ×4 (03:00→20:30)
[2020-03-02] MEDS ORDERED: CIPRO500 MG PO (03:45)
[2020-03-02] MEDS ORDERED: MONTELUKAST SOD10 MG PO (03:45)
[2020-03-02] MEDS ORDERED: LATUDA60 MG PO (03:45)
[2020-03-02] MEDS: MORPHINE SULFATE INJ 4 MG/ML INJ 1ML IV PRN ×3 (06:16→18:40)
[2020-03-02] MEDS: INSULIN REGULAR, HUMAN 100 UNIT/1 ML 3ML VIAL SQ SCH ×4 (07:30→20:56)
[2020-03-02] MEDS ORDERED: SUPER B COMPLE1 EACH PO (08:53)
[2020-03-02] MEDS ORDERED: folic acid PO (08:53)
[2020-03-02] MEDS ORDERED: CENTRUM SILVER1 EAC2 PO (08:53)
[2020-03-02] MEDS ORDERED: ANTACID PLUS A355 M1 PO (08:53)
[2020-03-02] MEDS ORDERED: VITAMIN D3 COM1 EACH PO (08:53)
[2020-03-02] MEDS ORDERED: HYDROXYZINE HCL25 MG PO (08:53)
[2020-03-02] MEDS ORDERED: HYDROXYZINE HCL 25 MG TAB PO PRN (13:00)
[2020-03-02 15:08] LABS: AMYLASE 156 U/L (25-125); LIPASE 402 U/L (8-78)
[2020-03-02] MEDS: RIVAROXABAN 10 MG TABLET PO SCH (15:15)
[2020-03-02] MEDS: TRAZODONE HCL 50 MG TAB PO SCH (20:30)
[2020-03-02] MEDS: GUAIFENESIN 200 MG/10 ML UDC PO PRN (20:31)
[2020-03-02] MEDS: PANTOPRAZOLE 40 MG 10ML VIAL IV SCH (23:33)
[2020-03-03] VITALS (7 sets, daily range): BP systolic 116–158; BP diastolic 73–83
[2020-03-03] MEDS: DEXTROSE 5%/0.9% SOD CHL 1,000 ML IV SCH ×3 (01:14→21:09)
[2020-03-03] MEDS: ACETAMINOPHEN 325 MG TAB PO PRN ×2 (01:14→10:30)
[2020-03-03] MEDS: GUAIFENESIN 200 MG/10 ML UDC PO PRN (01:14)
[2020-03-03 05:13] LABS: BASOPHILS % 0.2 % (0.0-1.0); EOSINOPHILS # (AUTO) 0.1 (0.0-0.4); EOSINOPHILS % 1.1 % (0.0-6.0); HEMATOCRIT 44.8 % (38.2-49.6); HEMOGLOBIN 15.1 g/dL (14.0-18.0); LYMPHOCYTES # (AUTO) 1.9 (1.0-3.2); LYMPHOCYTES % 22.8 % (18.0-39.1); MEAN CORPUSCULAR HEMOGLOBIN 30.6 pg (28-32); MEAN CORPUSCULAR HGB CONC 33.7 g/dL (31-35); MEAN CORPUSCULAR VOLUME 90.7 fL (81-99); MONOCYTES # (AUTO) 0.7 (0.2-0.8); MONOCYTES % 7.9 % (4.4-11.3); NEUTROPHILS # (AUTO) 5.7 (2.1-6.9); NEUTROPHILS % 67.8 % (38.7-80.0); PLATELET COUNT 189 x10e3/uL (140-360); RED BLOOD COUNT 4.94 x10e6/uL (4.3-5.7); RED CELL DISTRIBUTION WIDTH 12.5 % (11.7-14.4)
[2020-03-03 05:36] LABS: ALANINE AMINOTRANSFERASE 15 IU/L (0-55); ALBUMIN 3.6 g/dL (3.5-5.0); ALBUMIN/GLOBULIN RATIO 1.3 (0.8-2.0); ALKALINE PHOSPHATASE 67 IU/L (40-150); AMYLASE 80 U/L (25-125); ANION GAP 14.2 mmol/L (8-16); BLOOD UREA NITROGEN 9 mg/dL (7-26); BUN/CREATININE RATIO 9 (6-25); CALCIUM 8.2 mg/dL (8.4-10.2); CARBON DIOXIDE 21 mmol/L (22-29); CHLORIDE 104 mmol/L (98-107); CREATININE, SERUM 0.98 mg/dL (0.72-1.25); EST GLOMERULAR FILTRATION RATE > 60 ML/MIN (60-); GLUCOSE 94 mg/dL (74-118); LIPASE 201 U/L (8-78); POTASSIUM 4.2 mmol/L (3.5-5.1); SODIUM 135 mmol/L (136-145)
[2020-03-03 06:00] LABS: CHOL/HDL RATIO 2.6 (3.9-4.7)
[2020-03-03] MEDS: INSULIN REGULAR, HUMAN 100 UNIT/1 ML 3ML VIAL SQ SCH ×4 (07:30→21:00)
[2020-03-03] MEDS: PANTOPRAZOLE 40 MG 10ML VIAL IV SCH ×2 (09:27→21:09)
[2020-03-03] MEDS: ARIPIPRAZOLE 2 MG TABLET PO SCH (09:27)
[2020-03-03] MEDS: METOPROLOL TARTRATE 50 MG TAB PO SCH (09:28)
[2020-03-03] MEDS: MONTELUKAST SODIUM 10 MG TAB PO SCH (09:28)
[2020-03-03] MEDS: DIGOXIN 0.125 MG TAB PO SCH (09:28)
[2020-03-03] MEDS: MORPHINE SULFATE INJ 4 MG/ML INJ 1ML IV PRN (10:54)
[2020-03-03] MEDS: RIVAROXABAN 10 MG TABLET PO SCH (17:00)
[2020-03-03] MEDS: TRAZODONE HCL 50 MG TAB PO SCH (21:00)
[2020-03-04] VITALS: BP 125/80
[2020-03-04 04:00] VITALS: BP 139/84
[2020-03-04 05:56] LABS: AMYLASE 38 U/L (25-125)
[2020-03-04 06:10] LABS: LIPASE 126 U/L (8-78)
[2020-03-04] MEDS: INSULIN REGULAR, HUMAN 100 UNIT/1 ML 3ML VIAL SQ SCH ×2 (07:30→12:00)
[2020-03-04 07:40] VITALS: BP 144/65
[2020-03-04 07:45] VITALS: BP 144/65
[2020-03-04] MEDS: PANTOPRAZOLE 40 MG 10ML VIAL IV SCH (08:48)
[2020-03-04] MEDS: ARIPIPRAZOLE 2 MG TABLET PO SCH (08:48)
[2020-03-04] MEDS: DIGOXIN 0.125 MG TAB PO SCH (08:48)
[2020-03-04] MEDS: MONTELUKAST SODIUM 10 MG TAB PO SCH (08:49)
[2020-03-04] MEDS: METOPROLOL TARTRATE 50 MG TAB PO SCH (08:49)
[2020-03-04 12:00] VITALS: BP 162/82
[2020-03-04] MEDS: DEXTROSE 5%/0.9% SOD CHL 1,000 ML IV SCH (14:42)
[2020-03-04 16:00] VITALS: BP 157/77
== END 2020-03-04 18:04 | disposition home or self-care (01) | DRG 440 ==
LOC: ER 21:11 → ERHOLD 03-02 01:27 → MED/SURG 03-02 02:16
PROVIDERS: ADMIT Internal Medicine; ATTEND Internal Medicine
DX: K85.90 Acute pancreatitis without necrosis or infection, unspecified (principal); E11.65 Type 2 diabetes mellitus with hyperglycemia; I48.91 Unspecified atrial fibrillation; I10 Essential (primary) hypertension; E78.5 Hyperlipidemia, unspecified; Z20.828 Contact with and (suspected) exposure to other viral communicable diseases; F32.9 Major depressive disorder, single episode, unspecified
CPT/HCPCS: 36415; 71046; 74177; 80053; 80061; 81001; 82150; 82550; 82553; 82948; 83690; 84484; 85025; 93005; 99284; J1817; J2270; J2405; J7030; J7042; J7799; Q9967; U0002